=== PATIENT | male | born 1990 | race Caucasian/White ===

== ENCOUNTER 2019-10-21 08:58 | Outpatient (CLI) | payer BC, SELFPAY ==
[2019-10-21 10:54] LABS: Liquefaction Semen Complete in 30 min. (<30 minutes); Semen Color Opaque (Grey-opaque); Semen Viscosity Not Increased (Not Increa.); Volume Semen 2.5 mL (1.5-5.0)
[2019-10-21 10:55] LABS: Semen Immotility 30 %; Semen Non-Progressive Motility 20 %; Semen Progressive Motility 50 % (>32); Semen Total Motility 70 (>40% (PM+NP))
[2019-10-21 10:56] LABS: Semen Morphology Result to Follow; Sperm Count 3.8 Mil/mL (60-150 million/mL)
[2019-11-03 14:33] LABS: Fructose, Semen 274 mg/dL (150-600)
== END 2019-10-21 08:59 | disposition home or self-care (01) ==
PROVIDERS: PCP Advanced Practice Midwife; Visit Provider Advanced Practice Midwife
DX: N46.9 Male infertility, unspecified (principal)
CPT/HCPCS: 82757; 88160; 89320

== ENCOUNTER 2020-02-01 02:29 | Emergency (ER) | payer BC, SELFPAY ==
[2020-02-01] VITALS (8 sets, daily range): BP systolic 133–148; BP diastolic 90–103; PULSE 62–86; RESP 14–20; TEMP 36.8–36.9; O2SAT 96–99
--- NOTE | ~2020-02-01 | XR_ITS ---
XR chest 2V DATE: 02/01/2020 02:56 INDICATION: Chest pain for 8 hours TECHNIQUE: PA and lateral views COMPARISON: None FINDINGS: Normal heart size. No hilar or mediastinal enlargement. No pulmonary infiltrate or consolid ation, pleural effusion or pulmonary vascular congestion or pneumothorax is evident. IMPRESSION: No active cardiopulmonary disease Reviewed, dictated and finalized at location A.
--- NOTE | 2020-02-01 02:38 | ECG_ITS ---
Measurements Intervals [place] Rate: 66 P: 37 DC: 193 QRS: 26 QRSD: 95 T: 23 QT: 380 QTc: 401 Interpretive Statements SINUS RHYTHM ST ELEVATION IN DIFFUSE LEADS, PROBABLY EARLY REPOLARIZATION BORDERLINE ECG Electronically Signed On 02-01-2020 7:03:35 CDT by Dewey Marquez D.O.
[2020-02-01 02:48] LABS: Basophils Absolute Auto 0.04 K/mm3 (0.00-0.10); Basophils Percent Auto 0.4 % (0.0-1.0); Eosinophils Absolute Auto 0.09 K/mm3 (0.02-0.50); Eosinophils Percent Auto 0.8 % (1.0-6.0); Hematocrit 48.5 % (40.0-54.0); Hemoglobin 16.6 g/dL (14.0-18.0); Immature Granulocyte Absolute 0.04 K/mm3 (0.00-0.00); Immature Granulocyte Percent A 0.4 % (0.0-0.0); Lymphocytes Absolute Auto 3.21 K/mm3 (1.10-4.50); Lymphocytes Percent Auto 30.3 % (18.0-42.0); Mean Corpuscular HGB Conc 34.2 g/dL (32.0-36.0); Mean Corpuscular Hemoglobin 28.8 pg (27.0-31.0); Mean Corpuscular Volume 84.2 fL (78.0-102.0); Mean Platelet Volume 10.3 fl (8.7-11.0); Monocytes Absolute Auto 1.13 K/mm3 (0.10-0.90); Monocytes Percent Auto 10.7 % (2.0-11.0); Neutrophils Absolute Auto 6.1 K/mm3 (1.7-7.2); Neutrophils Percent Auto 57.4 % (50.0-70.0); Platelet Count Result 194 K/mm3 (150-420); Red Blood Count 5.76 M/mm3 (4.70-6.10); Red Cell Distribution Width 11.8 % (11.6-14.4); White Blood Count 10.6 K/mm3 (4.8-10.8)
[2020-02-01 03:01] LABS: Partial Thromboplastin Time 30.1 SEC (22.3-31.6); Prothrombin Time 10.7 Seconds (9.64-11.0)
[2020-02-01 03:08] LABS: Add Urine Microscopic? NO; Appearance Urine Clear (Clear); Bilirubin Urine Negative (Negative); Blood Urine Negative (Negative); Color Urine Yellow (Yellow); Glucose Urine UA Negative (Negative); Ketones Urine Negative (Negative); Leukocyte Esterase Ur Negative LEU/UL (Negative); Nitrate Urine Negative (Negative); Protein Urine Negative (Negative); Urobilinogen Urine 0.2 mg/dL (0.2-1.0)
[2020-02-01 03:09] LABS: Alanine Aminotransferase 42 U/L (16-63); Albumin Level 4.7 g/dL (3.4-5.0); Alkaline Phosphatase 72 U/L (46-116); Anion Gap 12 mmol/L (8-16); Aspartate Amino Transferase 16 U/L (15-37); Bilirubin,Total 0.6 mg/dL (0.00-1.00); Blood Urea Nitrogen 17 mg/dL (7-18); Carbon Dioxide 27 mmol/L (21-32); Chloride 102 mmol/L (98-108); Estimated CRCL calculation 127 ml/min; Estimated Glomerular Filt Rate > 60; Glucose 96 mg/dL (70-99); Lipase 76 U/L (73-393); Osmolality Calculated 293 mOsm/kg (285-295); Sodium 141 mmol/L (136-145); Total Protein 7.7 g/dL (6.4-8.2)
[2020-02-01 03:10] LABS: BNP 5.6 pg/mL (0-100)
[2020-02-01 03:11] LABS: Troponin I < 0.02 ng/mL (0.00-0.056)
[2020-02-01 03:14] LABS: Amphetamine Screen Urine Negative (Negative); Barbiturate Screen Urine Negative (Negative); Benzodiazepines Screen Urine Negative (Negative); Cannabinoid Screen Urine Negative (Negative); Cocaine Screen Urine Negative (Negative); Methadone Screen Urine Negative (Negative); Opiate Screen Urine Negative (Negative); Phencyclidine Screen Urine Negative (Negative)
[2020-02-01] MEDS: MAG HYDROX/ALUMINUM HYD/SIMETH 30 ML, PHENobarb/HYOSCY/ATROPINE/SCOP 32.4 MG, LIDOCAINE... PO (03:19)
--- NOTE | 2020-02-01 03:39 | ED.CHESTPAIN ---
HPI - Chest Pain General Chief Complaint: Chest Pain Stated Complaint: chest pain Source: patient Mode of arrival: ambulatory Limitations: no limitations History of Present Illness HPI narrative: this is a 29-year-old male with no previous past medical history does take [id number] PPIs, presents with some epigastric discomfort with pressure and is in the lower chest area and epigastric area that started around 6 this evening after supper. Has had an episode of nausea, rates his pain about a 7/10 with no radiation no diaphoresis no shortness of breath. Patient denies smoking history, does drink alcohol about 7 8 beers per per week, with no significant family history of heart disease. complaint: chest pain Onset (ago): hour(s) Timing of current episode: episodic Prior episodes: Yes Onset: during rest and after eating Pain location: epigastric Pain radiation: none Severity: moderate Pain scale (0-10): 7 Quality: tightness and burning Relieving factors: antacids Exacerbating factors: nothing Associated symptoms: nausea Treatment prior to arrival: aspirin Related Data Home Medications Medication Instructions Recorded Confirmed Prevacid 24Hr 1 cap PO DAILY 02/01/20 02/01/20 Allergies Allergy/AdvReac Type Severity Reaction Status Date / Time No Known Allergies Allergy Verified 02/01/20 03:05 Review of Systems Review of Systems: All systems reviewed & are unremarkable except as noted in HPI and below PMFSH Past Medical History Medical History GERD (gastroesophageal reflux disease) Exam Const: General: no acute distress and alert Orientation/consciousness: patient oriented x3 Limitations: altered mental status HENMT: Head: normal to inspection Eyes: Conjunctivae: conjunctivae normal Pupils: Equal, round and reactive pupils present EOM: EOMs intact bilaterally Neck: Neck: normal visual inspection, no lymphadenopathy and no meningeal signs Chest: Chest palpation & inspection: normal inspection of the chest Resp: Effort & Inspection: normal respiratory effort Auscultation: clear to auscultation bilaterally Cardio: Rate: regular rate Rhythm: regular rhythm GI: Auscultation: normal bowel sounds Other: epigastric tenderness to palpation Back/Spine/Pelvis: Back: no CVA tenderness Skin: General skin exam: normal color Rashes: no rashes Neuro: General: patient oriented x3, moves all extremities, no meningeal signs and no focal motor deficits Extrem: General: normal to inspection and no pedal edema Psych: Appearance: grossly normal Mental Status: mental status grossly normal Thought content: Yes Normal thought content present Course Course Emergency Course: reassessment the patient Initially patient's blood pressure 144/101, patient is current blood pressure is 133/96. His HARITHA risk score 0. The patient did receive a GI cocktail and which reduced his epigastric chest pain level from a 7 down to a 3. Talked to patient and his and went over labs chest x-ray and EKG which were within normal limits, patient does not have a primary care physician and advised patient that we would provide a list of primary care providers that he should establish with. Also mention that will be sending Protonix to his pharmacy that he should take daily and follow-up primary care physician. Vital Signs Vital signs: Vital Signs Temperature 36.8 C 02/01/20 02:29 Pulse Rate 69 02/01/20 02:29 Respiratory Rate 20 02/01/20 02:29 Blood Pressure 144/101 H 02/01/20 02:29 Pulse Oximetry 98 02/01/20 02:29 Temperature 36.8 C 02/01/20 02:29 Pulse Rate 73 02/01/20 03:34 Respiratory Rate 14 02/01/20 03:34 Blood Pressure 133/96 H 02/01/20 03:34 Pulse Oximetry 96 02/01/20 03:34 MDM - Chest Pain Lab Data Attestation: I reviewed the patient's lab results. Result diagrams: 02/01/20 02:45 02/01/20 02:45
== END 2020-02-01 04:00 | disposition home or self-care (01) ==
PROVIDERS: Emergency Provider Emergency Medicine
DX: R07.9 Chest pain, unspecified (principal); K21.9 Gastro-esophageal reflux disease without esophagitis
CPT/HCPCS: 36415; 71046; 80053; 80307; 81003; 83690; 83880; 84484; 85025; 85610; 85730; 93005; 99284; A9270

== ENCOUNTER 2020-06-01 10:41 | Outpatient (CLI) | payer BC, SELFPAY ==
[2020-06-01 12:52] LABS: Semen Viscosity Not Increased (Not Increa.)
[2020-06-01 12:53] LABS: Liquefaction Semen Complete in 30 min. (<30 minutes); Semen Color Opaque (Grey-opaque); Semen Immotility 50 %; Semen Non-Progressive Motility 30 %; Semen Progressive Motility 20 % (>32); Semen Total Motility 50 (>40% (PM+NP)); Sperm Count 10.8 Mil/mL (60-150 million/mL)
[2020-06-01 12:54] LABS: Semen Morphology Result to Follow
[2020-06-07 14:15] LABS: Fructose, Semen 217 mg/dL (150-600)
== END 2020-06-01 10:42 | disposition home or self-care (01) ==
PROVIDERS: Visit Provider Advanced Practice Midwife
DX: Z30.09 Encounter for other general counseling and advice on contraception (principal)
CPT/HCPCS: 82757; 88160; 89320

== ENCOUNTER 2025-01-20 08:46 | Emergency (ER) | payer OTHER, SELFPAY ==
[2025-01-20] VITALS (8 sets, daily range): BP systolic 131–145; BP diastolic 87–106; PULSE 66–78; RESP 12–14; TEMP 36.8; O2SAT 96–100
--- NOTE | ~2025-01-20 | XR_ITS ---
EXAMINATION: XR chest 2V, 01/20/2025 9:10 CDT HISTORY: chest pain COMPARISON: No comparisons available. Technique: 2 views obtained. Findings: The lungs are clear, no effusion. No pneumothorax. Heart is normal size. Mediastinal and hilar contours are within normal limits. Bony thorax no acute abnormality. Impression: No acute cardiopulmonary abnormality. Reviewed, dictated and finalized at location P. Impression: No acute cardiopulmonary abnormality.
--- OUTSIDE RECORDS SUMMARY | 2025-01-20 08:30 | XMS_ITS | Encounter Summary ---
Author Organization [facility] Healthcare Address [address] [place] [address] Care Team Providers Care Net Sorter Name Role Phone Unknown, Notinfile Primary Care Provider Unavail able Reason for Visit * Reason Comments Chest Pain Pain x 2 days Encounter Details Date Type Department Care Team (Late st Contact Info) Description 01/20/2025 8:30 AM CDT Office Visit [facility] at [address] [phone] Liz Barrera, VEE [address] [place] [address] [address] [place] [address] Chest pain, unspecified type (Primary Dx) Social History Tobacco Use Types Packs/Day Years Used Date Smoking Tobacco: Never Assessed Sex and Gender Information Value Date Recorded Sex Assigned at Not on file Legal Sex Male 8:07 AM CDT Gender Identity Not on file Sexual Orientation Not on file documented as of this encounter Last Filed Vital Signs Vital Sign Reading Time Taken Comments Blood Pressure 149/101 01/20/2025 8:21 AM CDT Pulse 80 01/20/2025 8:21 AM CDT Temperature 36.4 C (97.5 F) 01/20/2025 8:21 AM CDT Respiratory Rate 16 01/20/2025 8:21 AM CDT Oxygen Saturation 100% 01/20/2025 8:21 AM CDT Inhaled Oxygen Concentration - - Weight 115.7 kg (255 lb) 01/20/2025 8:21 AM CDT Height 188 cm (6' 2) 01/20/2025 8:21 AM CDT Body Mass Index 32.74 01/20/2025 8:21 AM CDT documented in this encounter Patient Instructions * Patient Instructions* Liz Barrera NP - 01/20/2025 8:30 AM CDT 34-year-old male patient presents today with complaints of chest pain to the left chest x2 days. Patient is nontender upon palpation is concerned for cardiac. Patient has no cardiac history. Sent to the ED to rule out cardiac in etiology documented in this encounter Plan of Treatment Not on file documented as of this encounter Visit Diagnoses Diagnosis Chest pain, unspecified type- Primary documented in this encounter Care Teams Net Sorter Relationship Specialty Start Date End Date Unknown, Notinfile PCP - General 01/20/25 documented as of this encounter
--- OUTSIDE RECORDS SUMMARY | 2025-01-20 08:30 | XMS_ITS | Encounter Summary ---
Author Organization [facility] Healthcare Address [address] [place] [address] Care Team Providers Care Process Owner Name Role Phone Unknown, Notinfile Primary Care Provider Unavail able Reason for Visit * Reason Comments Chest Pain Pain x 2 days Encounter Details Date Type Department Care Team (Late st Contact Info) Description 01/20/2025 8:30 AM CDT Office Visit [facility] at [address] [phone] Liz Barrera, VEE [address] [place] [address] [address] [place] [address] Chest pain, unspecified type (Primary [...] Primary documented in this encounter Care Teams Process Owner Relationship Specialty Start Date End Date Unknown, Notinfile PCP - General 01/20/25 documented as of this encounter
--- NOTE | 2025-01-20 08:47 | ECG_ITS ---
Test Date: 2025-01-20 08:51:20 Measurements Intervals [place] Rate: 83 P: 17 IA: 184 QRS: 11 QRSD: 95 T: 15 QT: 359 QTc: 423 Interpretive Statements SINUS RHYTHM BASELINE ARTIFACT- I, II, AVR, AVL NORMAL ECG No previous ECG available for comparison Electronically Signed On 01-20-2025 09:07:36 CDT by Dewey Marquez D.O.
--- OUTSIDE RECORDS SUMMARY | 2025-01-20 09:11 | XMS_ITS | Clinical Summary ---
Author Organization [facility] Address [address] [place] [id number] Care Team Providers Care Sales Account Director Name Role Phone Unknown, Notinfile Primary Care Provider Unavail able Allergies Active Allergy Reactions Criticality Noted Date Comments Penicillins Other (See comments) 01/20/2025 Pediatric-doesn't remember Medications No known medications Active Problems No known active problems Encounters Date Type Department Care Team Description 01/20/2025 8:30 AM CDT Office Visit [facility] at [address] [phone] Liz Barrera, VEE Chest pain, unspecified type (Primary Dx) from Last 3 Months Social History Tobacco Use Types Packs/Day Years Used Date Smoking Tobacco: Never Assessed Sex and Gender Information Value Date Recorded Sex Assigned at Not on file Legal Sex Male 8:07 AM CDT Gender Identity Not on file Sexual Orientation Not on file Last Filed Vital Signs Vital Sign Reading [...] Mass Index 32.74 01/20/2025 8:21 AM CDT Plan of Treatment Health Maintenance Due Date Last Done Comments Depression Screening 1992 Hepatitis C Screening 1992 Varicella Vaccines (1 of 2 - 13+ 2-dose series) 2005 Regular Well Visit/Exam 18-64 2010 HPV Vaccines (1 - 3-dose SCDM series) 08/23/2019 Covid-19 Vaccine (3 - 2024- season) 2024 06/21/2021, 05/31/2021 Influenza Vaccine (#1) 2024 DTaP/Tdap/Td Vaccine (7 - Td or Tdap) 10/20/2031 10/19/2021, 07/04/1997, 03/07/1994, Additional history exists Hepatitis B Screening Completed 12/12/1993 , 01/11/1993, 1992 Pneumococcal vaccine <65 Aged Out No longer eligible based on patient's age to complete this topic Insurance [facility] CHOICE [facility]US [facility] HMO/PPO Address: [facility] [address] [place] [address] Care Teams Sales Account Director Relationship Specialty Start Date End Date Unknown, Notinfile PCP - General 01/20/25
[2025-01-20] MEDS: ASPIRIN 81 MG CHEWABLE TABLET 324 MG PO (09:54)
[2025-01-20 09:57] LABS: Hematocrit 49.1 % (42.0-52.0); Hemoglobin 16.8 g/dL (14.0-18.0); Immature Granulocyte Percent A 0.4 % (0-0.5); Lymphocytes Absolute Auto 1.54 K/mm3 (0.9-3.2); Mean Corpuscular HGB Conc 34.2 g/dl (32-36); Mean Corpuscular Hemoglobin 28.3 pg (26-34); Mean Corpuscular Volume 82.8 fl (80-100); Nucleated Red Blood Cells Absolute Auto 0.000 K/mm3 (0.0-0.012); Nucleated Red Blood Cells Perc 0.0 % (0.0-0.2); Platelet Count Result 180 k/mm3 (150-375); Red Blood Count 5.93 M/mm3 (4.6-6.20); White Blood Count 11.2 K/mm3 (4.5-10.0)
[2025-01-20 10:10] LABS: INR 1.0; Prothrombin Time 13.0 Seconds (11.1-14.7)
[2025-01-20 10:11] LABS: Partial Thromboplastin Time 32.3 Seconds (22.3-36.8)
--- NOTE | 2025-01-20 10:15 | ED_ITS ---
HPI - Chest Pain General Chief Complaint: Chest Pain Stated Complaint: pressure in chest Time Seen by Provider: 01/20/25 09:22 Source: patient Mode of arrival: ambulatory Limitations: no limitations History of Present Illness HPI narrative: This is a 34 year old male that presents to the ER for left sided chest pain. Ongoing intermittently over the last couple of days. Reports the pain is dull in nature. Reports mild associated shortness of breath. Denies fever, cough, lower extremity edema. Related Data Home Medications ?Medication ?Instructions ?Recorded ?Confirmed ?Last Taken ?Type Prevacid 24Hr 1 cap PO DAILY 02/01/2001/06 Unknown History Allergies Allergy/AdvReac Type Severity Reaction Status Date / Time No Known Allergies Allergy Verified 02/01/20 03:05 Review of Systems 2 Review of Systems: All systems reviewed & are unremarkable except as noted in HPI and below PMFSH Past Medical History Medical History GERD (gastroesophageal reflux disease) Exam 2 Narrative: GENERAL: Well-appearing, well-nourished, and in no acute distress. HEAD: Normocephalic, atraumatic. EYES: EOMI. NECK: Supple. No JVD CHEST: Clear to auscultation. No respiratory distress. No wheezes rales or rhonchi HEART: Regular rate and rhythm. No murmur heard. Normal peripheral pulses. EXTREMITIES: Normal range of motion. No edema. SKIN: Warm, dry, no rash. NEURO: No focal deficits. Alert and oriented x3. PSYCH: Normal mood and affect Course Vital Signs Vital signs: Vital Signs Pulse Rate 78 01/20/25 09:42 Respiratory Rate 12 01/20/25 09:42 Blood Pressure 145/106 H 01/20/25 09:42 Pulse Oximetry 97 01/20/25 09:42 Oxygen Delivery Room Air 01/20/25 09:42 Temperature 98.3 F 01/20/25 13:46 Pulse Rate 78 01/20/25 14:06 Respiratory Rate 14 01/20/25 14:06 Blood Pressure 144/101 H 01/20/25 14:06 Pulse Oximetry 100 01/20/25 14:06 Oxygen Delivery Room Air 01/20/25 09:42 MDM - Chest Pain MDM Narrative Medical decision making narrative: Patient presents emergency department for chest pain ongoing over the last couple of days. His vitals are stable. CBC with mild leukocytosis to 11.2. Metabolic panel without concerning findings. EKG without acute ST changes, baseline and 3 hour troponin are negative. D-dimer is not elevated. Chest x- ray without acute cardiopulmonary abnormality. Patient updated on his workup and agrees with plan of care. He is to follow up primary provider. He was given warnings to return to the ER Differential Diagnosis Differential diagnosis: Likely stable angina, atypical chest pain and costochondritis Lab Data Attestation: I reviewed the patient's lab results. 01/20/25 09:49 01/20/25 09:49 Labs: Lab Results 01/20/25 01/20/25 Range/Units 09:49 12:40 WBC 11.2 H (4.5-10.0) K/mm3 RBC 5.93 (4.6-6.20) M/mm3 Hgb 16.8 (14.0-18.0) g/dL Hct 49.1 (42.0-52.0) % MCV 82.8 (80-100) fl MCH 28.3 (26-34) pg MCHC 34.2 (32-36) g/dl RDW 12.4 (11.5-14.5) % Plt Count 180 (150-375) k/mm3 MPV 9.9 (7.4-10.4) fl Immature Gran % (Auto) 0.4 (0-0.5) % Neut % (Auto) 73.1 (45.5-73.1) % Lymph % (Auto) 13.7 L (18.3-44.2) % Rich % (Auto) 11.5 H (2.6-8.5) % Eos % (Auto) 1.0 (0-4.4) % Baso % (Auto) 0.3 (0.2-1.2) % Lymph # (Auto) 1.54 (0.9-3.2) K/mm3 Rich # (Auto) 1.3 H (0.1-0.6) K/mm3 Eos # (Auto) 0.1 (0-0.3) K/mm3 Baso # (Auto) 0.0 (0.0-0.1) K/mm3 Abs Immat Gran (auto) 0.05 H (0.00-0.031) K/mm3 Absolute Neuts (auto) 8.2 H (1.3-6.7) K/mm3 Absolute Nucleated RBC 0.000 (0.0-0.012) K/mm3 Nucleated RBC % 0.0 (0.0-0.2) % PT 13.0 (11.1-14.7) Seconds INR 1.0 APTT 32.3 (22.3-36.8) Seconds D-Dimer 0.27 (<0.48) ug/mL Sodium 139 (137-145) mmol/L Potassium 3.9 (3.4-5.0) mmol/L Chloride 105 (98-107) mmol/L Carbon Dioxide 24 (22-30) mmol/L Anion Gap 10 (4-12) mmol/L BUN 16 (9-20) mg/dL Creatinine 0.80 (0.7-1.3) mg/dL Estim Creat Clear Calc 156 ml/min Estimated GFR > 60 (59 - ) Glucose 90 (65-110) mg/dL Calcium 8.8 (8.4-10.2) mg/dL Total Bilirubin 0.8 (0.2-1.3) mg/dL AST 39 (17-59) U/L ALT 43 (6-50) U/L Alkaline Phosphatase 78 (38-126) U/L Troponin I < 0.012 < 0.012 (0.000-0.034) ng/mL Total Protein 8.2 (6.3-8.2) g/dL Albumin 4.8 (3.5-5.1) g/dL Lipase 53 (23-300) U/L Imaging Data Radiologist's impression: ITS Impressions Chest X-Ray 01/20/25 09:20 Impression: No acute cardiopulmonary abnormality. ECG Data EKG #1: ECG completion date: 01/20/25 EKG Interpretation: normal rate, sinus rhythm, no ST changes and normal QT Critical Care Time Critical Care Time Critical Care Time: No Discharge Plan Discharge Clinical Impression: Chest pain Qualifiers: Chest pain type: unspecified Qualified Code(s): R07.9 - Chest pain, unspecified Patient Disposition: Home Condition: Stable Instructions: Chest Pain (ED) Additional Instructions: Return to the Emergency Department if you experience fever, worsening chest pain, shortness of breath, or any other symptoms that are concerning to you Follow up with primary care doctor Patient Language: Danish Prescriptions: No Action Prevacid 24Hr 1 cap PO DAILY pantoprazole [Protonix] 40 mg tablet,delayed release (DR/EC) 40 mg PO QAM 28 Days Qty: 28 0RF Follow-up/Referrals: PHYSICIAN,INDUSTRIAL RELATIONS MANAGER [Primary Care Provider, Internal Medicine] Aga Villanueva DO [Physician, Family Practice] Quality HEART score for chest pain patients History: slightly suspicious ECG: normal Age: < or = to 45 years Risk factors: 1 or 2 risk factors Troponin: < or = to 1x normal limit Heart score: 1
[2025-01-20 10:19] LABS: Alanine Aminotransferase 43 U/L (6-50); Albumin Level 4.8 g/dL (3.5-5.1); Alkaline Phosphatase 78 U/L (38-126); Anion Gap 10 mmol/L (4-12); Aspartate Amino Transferase 39 U/L (17-59); Bilirubin,Total 0.8 mg/dL (0.2-1.3); Blood Urea Nitrogen 16 mg/dL (9-20); Calcium 8.8 mg/dL (8.4-10.2); Carbon Dioxide 24 mmol/L (22-30); Chloride 105 mmol/L (98-107); Estimated CRCL calculation 156 ml/min; Estimated Glomerular Filt Rate > 60; Glucose 90 mg/dL (65-110); Lipase 53 U/L (23-300); Potassium 3.9 mmol/L (3.4-5.0); Sodium 139 mmol/L (137-145); Total Protein 8.2 g/dL (6.3-8.2)
[2025-01-20 10:31] LABS: Troponin I < 0.012 ng/mL (0.000-0.034)
--- OUTSIDE RECORDS SUMMARY | 2025-01-20 11:03 | XMS_ITS | Clinical Summary ---
Author Organization [facility] [place] [facility] Address [address] [place] [phone] Care Team Providers Care Fisher Mussel Name Role Phone Unknown, Notinfile Primary Care Provider Unavail able Allergies Active Allergy Reactions Criticality Noted Date Comments Penicillins Other (See comments) 01/20/2025 Pediatric-doesn't remember Medications No known medications Active Problems No known active problems Encounters Date Type Department Care Team Description 01/20/2025 8:30 AM CDT Office Visit [facility] at [address] [address] Liz Barrera, VEE Chest pain, [...] patient's age to complete this topic Insurance [facility] CHOICE PL[facility] Care Teams Fisher Mussel Relationship Specialty Start Date End Date Unknown, Notinfile PCP - General 01/20/25
--- NOTE | 2025-01-20 12:47 | ECG_ITS ---
Test Date: 2025-01-20 12:56:11 Measurements Intervals [place] Rate: 63 P: 31 GA: 201 QRS: 14 QRSD: 104 T: 13 QT: 386 QTc: 397 Interpretive Statements SINUS RHYTHM INCOMPLETE RIGHT BUNDLE BRANCH BLOCK BASELINE ARTIFACT- I, II, AVR, AVL, AVF BORDERLINE ECG Compared to ECG 01/20/2025 08:51:20 No significant changes Electronically Signed On 01-20-2025 12:59:15 CDT by Dewey Marquez D.O.
[2025-01-20 13:08] LABS: Troponin I < 0.012 ng/mL (0.000-0.034)
== END 2025-01-20 14:07 | disposition home or self-care (01) ==
PROVIDERS: Preventive Medicine Aerospace Medicine; Emergency Provider Physician Assistant
DX: R07.9 Chest pain, unspecified (principal); K21.9 Gastro-esophageal reflux disease without esophagitis; I45.10 Unspecified right bundle-branch block
CPT/HCPCS: 36415; 71046; 80053; 83690; 84484; 85025; 85380; 85610; 85730; 93005; 99284; A9270